=== PATIENT | male | born 1990 | race Caucasian/White ===

== ENCOUNTER 2021-02-11 16:45 | Emergency (ER) | payer BC, SELFPAY ==
--- NOTE | 2021-02-11 16:54 | ED.WOUNDLAC ---
HPI - Wound/Laceration General Chief Complaint: Wound/Laceration Stated Complaint: left index finger laceration Time Seen by Provider: 02/11/21 16:54 Source: patient and RN notes reviewed History of Present Illness HPI narrative: Patient is a 30-year-old male who presents the urgent care with complaints of left index finger laceration. Patient states that he cut it approximately 3 weeks ago while doing some housework. Patient states that over the last week it has become a little bit swollen and uncomfortable. Patient states that last night he cut his finger on something and reopened the area. Reports of a little bit of drainage but otherwise no other complications. Patient denies of fever, chills, nausea, vomiting. No other acute complaints. No acute distress noted. Patient aware of the plan of care. Some parts of this dictation were generated by voice recognition software and may contain typographical and/or grammatical inaccuracies. Related Data Home Medications Medication Instructions Recorded Confirmed sertraline 100 mg PO DAILY 02/11/21 02/11/21 Allergies Allergy/AdvReac Type Severity Reaction Status Date / Time No Known Allergies Allergy Verified 02/11/21 17:04 Review of Systems Review of Systems: Narrative: CONSTITUTIONAL: Denies fever, chills, or sweats. EYES: Denies visual changes, redness, or discharge. ENT: Denies rhinorrhea, congestion, sore throat, or otalgia. CARDIOVASCULAR: Denies chest pain, palpitations, or edema. RESPIRATORY: Denies cough or dyspnea. GASTROINTESTINAL: Denies abdominal pain, nausea, vomiting, or diarrhea. GENITOURINARY: Denies dysuria or hematuria. SKIN: Reports of a laceration to the left index finger MUSCULOSKELETAL: Denies back pain, joint pain, or myalgia. NEUROLOGIC: Denies headache, numbness, or weakness. All other systems reviewed are negative, except as documented in HPI. [facility] Family History Family History Grandparent Hypertension Diabetes mellitus Other Cerebrovascular accident Family history of coronary artery disease Family history of malignant neoplasm Social History Social History (Updated 11/11/20 @ 13:09 by Yu Pitt RN) Smoking status: Never smoker Alcohol intake: current Substance use: never Substance use type: does not use Comments At the time of my signature, I reviewed and agree with the nursing past medical, surgical, social, and family history. There is no relevant family history pertinent to the patient complaint. Exam Narrative: Exam Narrative: GENERAL: This is a well-nourished, well-developed patient, in no apparent distress. HEAD: normocephalic, atraumatic. EYES: PERRL. Sclera clear/white. Vision is grossly intact. EARS: External ears normal NOSE: External nose normal with no obvious nasal discharge, nares without redness, no rhinorrhea. THROAT: Mucous membranes moist NECK: Neck supple SKIN: 0.5 cm circular superficial open wound noted to the crevice of the PIP/DIP of the left index finger without notable cellulitis or drainage. Very mild surrounding erythema. Warm, intact with no suspicious lesions or rash, good texture and turgor. NEURO: awake, alert, and oriented to person, place and time. There were no obvious focal neurologic abnormalities. EXTREMITIES: No clubbing, cyanosis, or edema. Range of motion to left upper extremity within normal limits. Positive strong left radial pulse with capillary refill less than 2 seconds Course Vital Signs Vital signs: Vital Signs Temperature 98.1 F 02/11/21 16:55 Pulse Rate 51 L 02/11/21 16:55 Respiratory Rate 16 02/11/21 16:55 Blood Pressure 135/82 02/11/21 16:55 Pulse Oximetry 100 02/11/21 16:55 Temperature 98.1 F 02/11/21 16:55 Pulse Rate 51 L 02/11/21 16:55 Respiratory Rate 16 02/11/21 16:55 Blood Pressure 135/82 02/11/21 16:55 Pulse Oximetry 100 02/11/21 16:55 Reviewed [facility] -
[2021-02-11 16:55] VITALS: BP 135/82; PULSE 51; RESP 16; TEMP 36.7; O2SAT 100
== END 2021-02-11 17:18 | disposition home or self-care (01) ==
PROVIDERS: Emergency Provider Nurse Practitioner Family; PCP Family Medicine
DX: S61.211A Laceration without foreign body of left index finger without damage to nail, initial encounter (principal); W45.8XXA Other foreign body or object entering through skin, initial encounter; F41.9 Anxiety disorder, unspecified; F32.9 Major depressive disorder, single episode, unspecified
CPT/HCPCS: 99212; G0463

== ENCOUNTER → 2021-08-05 03:50 | Outpatient (CLI) | payer BC, SELFPAY ==
[2021-08-05 18:05] LABS: SARS-CoV-2 RNA PCR Negative
== END ==
PROVIDERS: PCP Family Medicine; Visit Provider Physician Assistant Medical
DX: R68.89 Other general symptoms and signs (principal); Z20.822 Contact with and (suspected) exposure to COVID-19
CPT/HCPCS: C9803; U0003; U0005

== ENCOUNTER 2021-12-25 07:35 | Outpatient (CLI) | payer BC, SELFPAY ==
[2021-12-25 17:41] LABS: Cholesterol 236 mg/dL (0-200); HDL Direct 32 mg/dL; Triglycerides 155 mg/dL (<150)
[2021-12-25 17:52] LABS: LDL Cholesterol Direct 149 mg/dL
== END 2021-12-25 07:36 | disposition home or self-care (01) ==
LOC: ANHLAB 07:38
PROVIDERS: PCP Family Medicine; Visit Provider Nurse Practitioner Family
DX: E78.5 Hyperlipidemia, unspecified (principal)
CPT/HCPCS: 36415; 80061